=== PATIENT | male | born 1960 | race African-American/Black ===

== ENCOUNTER 2023-07-03 02:18 | Emergency (ER) | payer SELFPAY ==
[~2023-07-03] VITALS: Ht 180.3 cm; Wt 98.0 kg
[2023-07-03 02:56] VITALS: BP 194/86; PULSE 86; RESP 14; TEMP 98.3; O2SAT 100
[2023-07-03] MEDS ORDERED: CEPH500C2 PO (05:25)
[2023-07-03] MEDS ORDERED: SULF1TAB48 PO (05:25)
== END 2023-07-03 05:56 | disposition home or self-care (01) ==
LOC: ER 02:18
DX: M79.669 Pain in unspecified lower leg (principal); F17.200 Nicotine dependence, unspecified, uncomplicated
CPT/HCPCS: 99283

== ENCOUNTER 2024-04-09 01:26 | Emergency (ER) | payer SELFPAY ==
[~2024-04-09] VITALS: Ht 167.6 cm; Wt 96.0 kg
[~2024-04-09 01:26] MED LIST: CEPH500C2 PO; SULF1TAB48 PO
[2024-04-09 01:32] VITALS: O2SAT 99
[2024-04-09 02:40] LABS: BASOPHILS % 0.5 % (0.0-2.0); EOSINOPHILS % 2.3 % (0.0-5.0); HEMATOCRIT. 32.5 % (42.0-52.0); HEMOGLOBIN. 10.4 g/dL (14.0-18.0); LYMPHOCYTES % 20.5 % (20.0-50.0); MEAN CORPUSCULAR HGB CONC 32.1 g/dL (31.0-37.0); MEAN PLATELET VOLUME 8.9 fl (7.4-10.4); MONOCYTES % 10.3 % (2.0-8.0); NEUTROPHILS % 66.4 % (40.0-76.0); PLATELET 262 x1000/uL (130-400); RED BLOOD CELL COUNT 4.01 mill/uL (4.7-6.1); RED CELL DISTRIBUTION WIDTH 16.7 % (11.6-14.6); WHITE BLOOD COUNT 9.9 x1000/uL (4.5-11.0)
[2024-04-09 02:46] LABS: POTASSIUM 4.4 mEq/L (3.5-5.1)
[2024-04-09 02:47] LABS: CALCIUM 8.8 mg/dL (8.7-10.4)
[2024-04-09 02:52] LABS: CREATININE 1.5 mg/dL (0.6-1.3)
[2024-04-09] MEDS ORDERED: CEPH500C2 PO (04:34)
[2024-04-09] MEDS ORDERED: SULF1TAB48 PO (04:34)
[2024-04-09 04:56] VITALS: BP 181/74; PULSE 75; RESP 18; TEMP 97.9
== END 2024-04-09 05:08 | disposition home or self-care (01) ==
LOC: ER 01:26
DX: I89.0 Lymphedema, not elsewhere classified (principal); L03.119 Cellulitis of unspecified part of limb
CPT/HCPCS: 36415; 80048; 83880; 85025; 99283